=== PATIENT | male | born 1970 | race African-American/Black ===

== ENCOUNTER → 2016-12-30 | Outpatient (CLI) | payer MEDICARE, MEDICAID | END | disposition home or self-care (01) | LOC: LAB 14:01 | PROVIDERS: ATTEND Family Medicine | DX: Z02.89 Encounter for other administrative examinations (principal) | CPT/HCPCS: G0434 ==

== ENCOUNTER → 2018-08-12 | Outpatient (CLI) | payer MEDICARE, MEDICAID ==
[~2018-08-12] MED LIST: BACL10TA PO; DICL1CAP PO; HYDR-4683 PO
[2018-08-12 11:10] LABS: Basophils # (auto) 0 uL; Basophils % (auto) 0.7 % (0.0-2.0); Eosinophils # (auto) 0 uL; Eosinophils % (auto) 0.6 % (0.0-7.0); Hematocrit 43.7 % (41.0-53.0); Hemoglobin 14.8 g/dL (13.5-17.5); Lymphocytes # (auto) 1.7 uL; Lymphocytes % (auto) 27.2 % (10.0-50.0); Mean Corpuscular Hgb Conc. 33.8 g/dL (32.0-36.0); Mean Corpuscular Volume 94.5 fL (80.0-100.0); Monocytes # (auto) 0.4 uL; Monocytes % (auto) 6.2 % (0.0-12.0); Neutrophils % (auto) 65.3 % (37.0-80.0); Platelet Count (auto) 247 10^3/uL (140-450); Red Blood Cells 4.63 10^6/uL (4.5-5.90); Red Cell Distribution Width 14.3 % (11.8-14.3); White Blood Cell 6.1 10^3/uL (4.4-10.8)
[2018-08-12 11:18] LABS: Urine Bacteria FEW /hpf (None Seen); Urine Blood Negative /uL (Negative); Urine Mucus FEW (None Seen); Urine WBC <1 /hpf (0 - 3)
[2018-08-12 11:39] LABS: Albumin 3.9 g/dL (3.4-5.0); BUN/Creatinine Ratio 20.2; Bilirubin, Total 0.4 mg/dL (0.2-1.0); Calcium 9.2 mg/dL (8.5-10.1); Potassium 4.8 mmol/L (3.5-5.1); Total Protein 7.4 g/dL (6.4-8.2)
[2018-08-12 11:48] LABS: Amphetamine Screen, Urine NEGATIVE (NEGATIVE); Barbiturate Scree,Urine NEGATIVE (NEGATIVE); Benzodiazephine Screen, Urine NEGATIVE (NEGATIVE); Cannabinoid Screen, Urine POSITIVE (NEGATIVE); Cocaine Screen, Urine NEGATIVE (NEGATIVE); Opiate Scree,Urine POSITIVE (NEGATIVE); Phencyclidine Screen, Urine NEGATIVE (NEGATIVE)
== END | disposition home or self-care (01) ==
LOC: LAB 10:28
PROVIDERS: ATTEND Nurse Practitioner
DX: Z02.83 Encounter for blood-alcohol and blood-drug test (principal); E78.5 Hyperlipidemia, unspecified; J44.9 Chronic obstructive pulmonary disease, unspecified; F32.9 Major depressive disorder, single episode, unspecified; F11.20 Opioid dependence, uncomplicated
CPT/HCPCS: 36415; 80053; 80061; 80307; 81001; 84443; 85025

== ENCOUNTER → 2018-12-02 | Outpatient (CLI) | payer OTHER, MEDICAID ==
[2018-12-02 13:04] LABS: Urine WBC None Seen /hpf (0 - 3)
[2018-12-02 13:12] LABS: Basophils # (auto) 0 uL; Basophils % (auto) 0.6 % (0.0-2.0); Eosinophils # (auto) 0.1 uL; Eosinophils % (auto) 1.7 % (0.0-7.0); Hematocrit 45.4 % (41.0-53.0); Hemoglobin 15.2 g/dL (13.5-17.5); Lymphocytes # (auto) 1.5 uL; Lymphocytes % (auto) 26.3 % (10.0-50.0); Mean Corpuscular Hemoglobin 30.7 pg (28.0-32.0); Mean Corpuscular Hgb Conc. 33.5 g/dL (32.0-36.0); Mean Corpuscular Volume 91.6 fL (80.0-100.0); Monocytes # (auto) 0.4 uL; Monocytes % (auto) 7.6 % (0.0-12.0); Neutrophils # (auto) 3.7 uL; Neutrophils % (auto) 63.8 % (37.0-80.0); Nucleated Red Blood Cells % 0.2 %; Platelet Count (auto) 232 10^3/uL (140-450); Red Blood Cells 4.96 10^6/uL (4.5-5.90); White Blood Cell 5.9 10^3/uL (4.4-10.8)
[2018-12-02 13:29] LABS: Urine Bacteria NONE SEEN /hpf (None Seen); Urine Blood Negative /uL (Negative); Urine Specific Gravity 1.019 (1.001-1.035)
[2018-12-02 14:02] LABS: Albumin 3.9 g/dL (3.4-5.0); Calcium 8.5 mg/dL (8.5-10.1); Potassium 4.4 mmol/L (3.5-5.1)
[2018-12-02 14:07] LABS: BUN/Creatinine Ratio 13.2; Bilirubin, Total 0.3 mg/dL (0.2-1.0); Total Protein 7.4 g/dL (6.4-8.2)
== END | disposition home or self-care (01) ==
LOC: LAB 12:44
PROVIDERS: ATTEND Nurse Practitioner
DX: E78.5 Hyperlipidemia, unspecified (principal)
CPT/HCPCS: 36415; 80053; 80061; 81001; 82306; 84443; 85025